=== PATIENT | female | born 1940 | race Caucasian/White ===

== ENCOUNTER → 2017-09-10 | Outpatient (CLI) | payer MEDICARE, BC ==
--- NOTE | 2017-09-10 13:09 | FL ---
EXAMINATION: Cervical and Thoracic Esophagram DATE OF EXAM: 09/10/2017 CLINICAL INDICATION: 76-year-old female with GERD, history of Zaid fundoplication in 2016 with recu rrent symptoms with epigastric pain. Flank, cough, and hoarseness. COMPARISON: 09/28/2015 Total Fluoroscopy Time: 2 minutes 42 seconds Total images: 54 FINDINGS: The swallowing mechanism is normal. There is mild anterior endplate spondylosis mid to lower cervical spine causing mild impression onto the posterior cervical esophagus but without any obstruction. Oth erwise, hypopharyngeal anatomy is maintained. The cervical and thoracic portions have a normal course and caliber. Mild to moderate tertiary perist altic contractions are intermittently demonstrated. The mucosa is normal and no persistent filling defect is encountered. At the GE junction, there is focal narrowing prior to the stomach suggesting transdiaphragmatic wrap herniation. The B line is seen above this narrowing suggesting slippage of a portion of the stomach a ernesto the wrap. Gastroesophageal reflux could not be elicited during this exam. IMPRESSION: 1. Focal narrowing prior to the diaphragm. Findings suspicious for transdiaphragmatic wrap herniation . 2. The B line appears to be located above this narrowing. This may represent slippage of a portion of the stomach above the wrap. 3. Further clinical correlation recommended. 4. [id number] tertiary peristalsis. No obstruction.
== END | disposition home or self-care (01) ==
LOC: RADFLMAIN 09:08
PROVIDERS: ATTEND Surgery
DX: K22.8 Other specified diseases of esophagus (principal); K21.9 Gastro-esophageal reflux disease without esophagitis; R93.3 Abnormal findings on diagnostic imaging of other parts of digestive tract
CPT/HCPCS: 74220

== ENCOUNTER 2017-09-12 08:20 | Day surgery (SDC) | payer MEDICARE, BC ==
[2017-09-07 13:26] VITALS: BMI 24.0
[~2017-09-12 08:20] MED LIST: LACTATED RINGERS 1,000 ML IV SCH; LIDOCAINE 1% 20 ML VIAL (10MG/ML) FOR IV START INTRADERMA PRN
[2017-09-12 09:21] VITALS: TEMP 96.8
[2017-09-12] MEDS ORDERED: PROPOFOL 10 MG/ML 20 ML VIAL IV ONE (09:57)
--- NOTE | 2017-09-12 10:00 | P.GSHP ---
History of Present Illness H&P Date: 09/12/17 Chief Complaint: GERD This is a 76-year-old female presents today for EGD. She's had issues with GERD. She has a previous history of a hiatal hernia repair. Past Medical History Past Medical History: Chest Pain / Angina, GERD/Reflux, Hyperlipidemia, Hypertension Additional Past Medical History / Comment(s): CHRONIC COUGH, hiatal hernia, VARICOSE VEINS. past hx. IRREGULAR HEART BEAT-no current problems,. HX CHEST PAIN - NO NITRO USED SINCE 2008, stress test 2013 wnl per pt. History of Any Multi-Drug Resistant Organisms: None Reported Past Surgical History: Appendectomy, Hysterectomy, Orthopedic Surgery, Tubal Ligation Additional Past Surgical History / Comment(s): Heel spur; carpal tunnel L WRIST , CYSTOCELE, RECTOCELE, EGD, colonoscopy Past Anesthesia/Blood Transfusion Reactions: Previous Problems w/ Anesthesia Additional Past Anesthesia/Blood Transfusion Reaction / Comment(s): HARD TO WAKE UP AFTER HYSTERECTOMY SURGERY Smoking Status: Never smoker - Past Family History Mother Family Medical History: Cancer Additional Family Medical History / Comment(s): HX BREAST CA , diet controlled diabetes Father Additional Family Medical History / Comment(s): of heart attack at 58 Brother(s) Family Medical History: Diabetes Mellitus Additional Family Medical History / Comment(s): insulin Medications and Allergies Home Medications Medication Instructions Recorded Confirmed Type Aspirin 81 mg PO QAM 11/12/13 09/12/17 History Calcium Carbonate/Vitamin D3 1 each PO DAILY 11/12/13 09/12/17 History [Calcium 600-Vit D3 400 Tablet] Fish Oil/Dha/Epa [Fish Oil 1,200 1,200 mg PO DAILY 11/12/13 09/12/17 History mg Fish Oil] Metoprolol Tartrate [Lopressor] 25 mg PO QAM 11/12/13 09/12/17 History Nitroglycerin Sl Tabs [Nitrostat] 0.4 mg SUBLINGUAL DIRECTED PRN 11/12/13 History Simvastatin [Zocor] 20 mg PO HS 11/12/13 09/12/17 History amLODIPine [Norvasc] 5 mg PO QAM 08/19/15 09/12/17 History Acetaminophen-Codeine 300-30mg 1 tab PO Q6H PRN #28 tablet 09/29/15 09/12/17 Rx [Tylenol #3] Allergies Allergy/AdvReac Type Severity Reaction Status Date / Time levofloxacin [From Levaquin] Allergy Itching/JOE Verified 09/12/17 09:15 H Surgical - Exam Vital Signs Temp Pulse Resp BP Pulse Ox 96.8 F L 68 18 141/84 94 L 09/12/17 09:19 09/12/17 09:19 09/12/17 09:19 09/12/17 09:19 09/12/17 09:19 - General well developed, no distress - Eyes PERRL - ENT normal pinna - Neck no masses - Respiratory normal expansion - Cardiovascular Rhythm: regular - Abdomen Abdomen: soft, non tender Assessment and Plan Assessment: GERD. Patient's recent esophagram shows possible recurrence of hiatal hernia and fundoplication at the diaphragm level. Patient will undergo EGD to evaluate for possible recurrent hiatal hernia.
--- NOTE | 2017-09-12 10:09 | P.OP ---
Date of Procedure: 09/12/17 Preoperative Diagnosis: GERD Postoperative Diagnosis: Antral gastritis Possible slipped fundoplication Procedure(s) Performed: EGD Anesthesia: MAC Surgeon: Fernando Sosa Pathology: other (Antrum) Condition: stable Disposition: PACU Description of Procedure: The patient's placed on the endoscopy table in the lateral position. She received IV sedation. The gastroscope placed oropharynx and passed in the esophagus into the stomach. Scope was then placed through the pylorus. The first second portion of duodenumAppeared Normal. Scope was then brought back the antrum this was mildly inflamed. A biopsies was performed. The scope was then retroflexed and the remainder of the stomach appeared normal. The patient a fundal plication wrap. There appeared to be some stomach above the fundoplication wrap the GE junction was at 40 cm. The distal esophagus appeared normal. The proximal esophagus appeared normal. Scope was withdrawn for patient.
[2017-09-12 10:26] VITALS: RESP 16
[2017-09-12 10:42] VITALS: BP 166/85; PULSE 80
== END 2017-09-12 11:00 | disposition home or self-care (01) ==
LOC: ORWHC2ENDO 08:20
PROVIDERS: ATTEND Surgery
DX: K29.50 Unspecified chronic gastritis without bleeding (principal); K21.9 Gastro-esophageal reflux disease without esophagitis; I10 Essential (primary) hypertension; E78.5 Hyperlipidemia, unspecified; Z79.82 Long term (current) use of aspirin; Z87.19 Personal history of other diseases of the digestive system; Z83.3 Family history of diabetes mellitus; Z88.3 Allergy status to other anti-infective agents
CPT/HCPCS: 88305; 43239; J2704

== ENCOUNTER → 2017-11-16 | Outpatient (CLI) | payer MEDICARE, BC ==
--- NOTE | 2017-11-16 12:25 | FL ---
EXAMINATION TYPE: FL barium swallow DATE OF EXAM: 11/16/2017 CLINICAL HISTORY: History of Zaid fundoplication in 2016. Patient complains of hoarseness and reflu x. TECHNIQUE: A double contrast esophagram is performed utilizing air and barium. A total of 1 minute and 37 seconds of fluoroscopic time was utilized during procedure. 41 fluoroscopic images were saved. COMPARISON: 09/10/2017 FINDINGS: Postsurgical changes of the cervical spine are again noted with anterior osteophytes minimally impres sing upon the lower cervical spine as seen on the prior. The esophagus shows abnormal motility with mild tertiary contractions seen intermittently throughout the examination. There is normal emptying into the stomach. The previously seen narrowing at the GE j unction relates to the surgical wrap site of the Zaid fundoplication. This is located inferior to t he diaphragm. The previously seen abnormality of the B line located above the area of narrowing no lo nger persists but was convincing on the prior examination and therefore in correlation with the prior exam there may be an intermittent slippage/herniation. No significant gastroesophageal reflux was s een during real time performance of this study. IMPRESSION: 1. The findings seen on the prior exam of 09/10/2017 do not persist on the current study and therefore there is thought to be intermittent slippage/herniation. Gastroesophageal junction and postoperativ e changes are currently infradiaphragmatic. 2. Intermittent tertiary contractions throughout the examination suggestive of presbyesophagus.
== END | disposition home or self-care (01) ==
LOC: RADFLWHC 10:41
PROVIDERS: ATTEND Surgery
DX: R93.3 Abnormal findings on diagnostic imaging of other parts of digestive tract (principal)
CPT/HCPCS: 74220

== ENCOUNTER 2017-11-22 06:45 | Day surgery (SDC) | payer MEDICARE, BC ==
[2017-11-21 08:22] VITALS: BMI 24.7
[~2017-11-22 06:45] MED LIST changes: -LIDOCAINE 1% 20 ML VIAL (10MG/ML) FOR IV START INTRADERMA PRN
[2017-11-22 07:03] VITALS: TEMP 98.2
[2017-11-22] MEDS ORDERED: LIDOCAINE 1% INJ 10MG/ML (20 ML MDV) ONE (07:38)
[2017-11-22] MEDS ORDERED: PROPOFOL 10 MG/ML 20 ML VIAL IV ONE (07:38)
--- NOTE | 2017-11-22 07:52 | P.GSHP ---
History of Present Illness H&P Date: 11/22/17 Chief Complaint: GERD This is a 77-year-old female who has complaints of some mild GERD and dysphagia. Patient states that she feels like she has to clear her throat repetitively during the day. She presents today for EGD. Past Medical History Past Medical History: Chest Pain / Angina, GERD/Reflux, Hyperlipidemia, Hypertension Additional Past Medical History / Comment(s): CHRONIC COUGH, hiatal hernia, VARICOSE VEINS. past hx. IRREGULAR HEART BEAT-no current problems,. HX CHEST PAIN - NO NITRO USED SINCE 2008, stress test 2013 wnl per pt. History of Any Multi-Drug Resistant Organisms: None Reported Past Surgical History: Appendectomy, Hysterectomy, Orthopedic Surgery, Tubal Ligation Additional Past Surgical History / Comment(s): Heel spur; carpal tunnel L WRIST , CYSTOCELE, RECTOCELE, EGD, colonoscopy Past Anesthesia/Blood Transfusion Reactions: Previous Problems w/ Anesthesia Additional Past Anesthesia/Blood Transfusion Reaction / Comment(s): HARD TO WAKE UP AFTER HYSTERECTOMY SURGERY Smoking Status: Never smoker - Past Family History Mother Family Medical History: Cancer Additional Family Medical History / Comment(s): HX BREAST CA , diet controlled diabetes Father Additional Family Medical History / Comment(s): of heart attack at 58 Brother(s) Family Medical History: Diabetes Mellitus Additional Family Medical History / Comment(s): insulin Sister(s) Family Medical History: Cancer Additional Family Medical History / Comment(s): reproductive Medications and Allergies Home Medications Medication Instructions Recorded Confirmed Type Aspirin 81 mg PO QAM 11/12/13 11/22/17 History Calcium Carbonate/Vitamin D3 1 each PO DAILY 11/12/13 11/22/17 History [Calcium 600-Vit D3 400 Tablet] Fish Oil/Dha/Epa [Fish Oil 1,200 1,200 mg PO DAILY 11/12/13 11/22/17 History mg Fish Oil] Metoprolol Tartrate [Lopressor] 25 mg PO QAM 11/12/13 11/22/17 History Nitroglycerin Sl Tabs [Nitrostat] 0.4 mg SUBLINGUAL DIRECTED PRN 11/12/1306/10 History Simvastatin [Zocor] 20 mg PO HS 11/12/13 11/22/17 History amLODIPine [Norvasc] 5 mg PO QAM 08/19/15 11/22/17 History Acetaminophen-Codeine 300-30mg 1 tab PO Q6H PRN #28 tablet 09/29/15 11/22/17 Rx [Tylenol #3] Allergies Allergy/AdvReac Type Severity Reaction Status Date / Time levofloxacin [From Levaquin] Allergy Itching/JOE Verified 11/21/17 08:16 H Surgical - Exam Vital Signs Temp Pulse Resp BP Pulse Ox 98.2 F 80 14 166/87 97 11/22/17 07:01 11/22/17 07:01 11/22/17 07:01 11/22/17 07:01 11/22/17 07:01 - General well developed, no distress - Eyes PERRL - ENT normal pinna - Neck no masses - Respiratory normal expansion - Cardiovascular Rhythm: regular - Abdomen Abdomen: non tender Assessment and Plan Assessment: History of GERD. We'll perform EGD.
--- NOTE | 2017-11-22 08:01 | P.OP ---
Date of Procedure: 11/22/17 Preoperative Diagnosis: GERD Postoperative Diagnosis: Recurrent hiatal hernia Possible slipped fundoplication Procedure(s) Performed: EGD Anesthesia: MAC Surgeon: Fernando Sosa Pathology: other (Esophagus) Condition: stable Disposition: PACU Description of Procedure: The patient's placed on the operating table in the lateral position. She received IV sedation. The gastroscope was placed oropharynx and passed into the esophagus and into the stomach. The scope was then placed through the pylorus. The first and second portion of the duodenum appeared normal. Scope was then brought back the antrum and this appeared normal. The scope was retroflexed and the remainder of the stomach appeared normal. The patient had a previous fundal plication. The scope was then brought back and it appeared that the fundoplication was just below the level of GE junction. The proximal stomach appeared to be suggestive of a recurrent hiatal hernia. The distal esophagus appeared mildly inflamed a biopsies performed. The proximal esophagus appeared normal. The scope was then withdrawn for patient.
[2017-11-22 08:38] VITALS: BP 154/92; PULSE 83; RESP 18
== END 2017-11-22 08:50 | disposition home or self-care (01) ==
LOC: ORWHC2ENDO 06:45
PROVIDERS: ATTEND Surgery
DX: K21.0 Gastro-esophageal reflux disease with esophagitis (principal); K44.9 Diaphragmatic hernia without obstruction or gangrene; E78.5 Hyperlipidemia, unspecified; I10 Essential (primary) hypertension; R05 Cough; Z79.82 Long term (current) use of aspirin; Z79.899 Other long term (current) drug therapy; Z88.1 Allergy status to other antibiotic agents; Z98.51 Tubal ligation status; Z90.710 Acquired absence of both cervix and uterus
CPT/HCPCS: 88305; 43239; J2001; J2704

== ENCOUNTER → 2017-12-03 | Outpatient (CLI) | payer MEDICARE, BC | END | disposition home or self-care (01) | LOC: LABPAT 10:59 | PROVIDERS: ATTEND Surgery | DX: Z01.818 Encounter for other preprocedural examination (principal) | CPT/HCPCS: 93005 ==

== ENCOUNTER 2017-12-17 09:11 | Day surgery (SDC) | payer MEDICARE, BC ==
[2017-12-05 15:42] VITALS: BMI 23.8
[~2017-12-17 09:11] MED LIST changes: +DEXAMETHASONE SOD PHOSPHATE 10 MG/ML 1 ML VIAL IV ONE; +HEPARIN SODIUM,PORCINE 5,000 UNIT/ML 1 ML VIAL SQ ONE; +MIDAZOLAM 2 MG/2 ML VIAL IV PRN; +ONDANSETRON 4 MG/2 ML VIAL IVP ONE; +ceFAZolin IN SWFI 2 GM/20 ML SYRINGE IVP ONE
[2017-12-17] MEDS ORDERED: LIDOCAINE 1% 20 ML VIAL (10MG/ML) FOR IV START INTRADERMA ONE (10:14)
--- NOTE | 2017-12-17 11:22 | P.GSHP ---
History of Present Illness H&P Date: 12/17/17 Chief Complaint: GERD, dysphagia This a 77-year-old female who is completely GERD and dysphagia. She has recent esophagram shows a possible small recurrent hiatal hernia hospital slippage of her fundoplication wrap. Patient rents today for laparoscopic repair of recurrent Past Medical History Past Medical History: Chest Pain / Angina, GERD/Reflux, Hypertension Additional Past Medical History / Comment(s): CHRONIC COUGH, hiatal hernia, VARICOSE VEINS , IRREGULAR HEART BEAT, HX CHEST PAIN - NO NITRO USED SINCE 2008 , stress test 2013 wnl per pt. varicose veins, History of Any Multi-Drug Resistant Organisms: None Reported Past Surgical History: Appendectomy, Bladder Surgery, Hysterectomy, Orthopedic Surgery, Tubal Ligation Additional Past Surgical History / Comment(s): Heel spur surgery left foot, carpal tunnel L WRIST, CYSTOCELE and RECTOCELE, EGD, colonoscopy Past Anesthesia/Blood Transfusion Reactions: Previous Problems w/ Anesthesia Additional Past Anesthesia/Blood Transfusion Reaction / Comment(s): HARD TO WAKE UP AFTER HYSTERECTOMY SURGERY Smoking Status: Never smoker - Past Family History Mother Family Medical History: Cancer Additional Family Medical History / Comment(s): HX BREAST CA Father Additional Family Medical History / Comment(s): of heart attack at 58 Brother(s) Family Medical History: Diabetes Mellitus Additional Family Medical History / Comment(s): insulin Sister(s) Family Medical History: Cancer Additional Family Medical History / Comment(s): . Medications and Allergies Home Medications Medication Instructions Recorded Confirmed Type Aspirin 81 mg PO QAM 11/12/13 12/17/17 History Calcium Carbonate/Vitamin D3 1 each PO DAILY 11/12/13 12/17/17 History [Calcium 600-Vit D3 400 Tablet] Fish Oil/Dha/Epa [Fish Oil 1,200 1,200 mg PO DAILY 11/12/13 12/17/17 History mg Fish Oil] Metoprolol Tartrate [Lopressor] 25 mg PO QAM 11/12/13 12/17/17 History Nitroglycerin Sl Tabs [Nitrostat] 0.4 mg SUBLINGUAL DIRECTED PRN 11/12/13 History Simvastatin [Zocor] 20 mg PO HS 11/12/13 12/17/17 History amLODIPine [Norvasc] 5 mg PO QAM 08/19/15 12/17/17 History Allergies Allergy/AdvReac Type Severity Reaction Status Date / Time levofloxacin [From Levaquin] Allergy Itching/JOE Verified 12/17/17 09:49 H Surgical - Exam Vital Signs Temp Pulse Resp BP Pulse Ox 97.6 F 70 16 181/83 97 12/17/17 10:16 12/17/17 10:16 12/17/17 10:16 12/17/17 10:16 12/17/17 10:16 - General well developed, no distress - Eyes PERRL - ENT normal pinna - Neck no masses - Respiratory normal expansion - Cardiovascular Rhythm: regular - Abdomen Abdomen: soft, non tender Assessment and Plan Assessment: Recurrent hiatal hernia. We'll perform laparoscopic repair.
[2017-12-17] MEDS ORDERED: ePHEDrine SULFATE/0.9% NACL/PF 50 MG/5 ML SYRINGE IV ONE (11:42)
[2017-12-17] MEDS ORDERED: ONDANSETRON 4 MG/2 ML VIAL ONE (11:42)
[2017-12-17] MEDS ORDERED: fentaNYL (PF) 50 MCG/ML 2 ML AMP ONE (11:42)
[2017-12-17] MEDS ORDERED: SUCCINYLCHOLINE CHLORIDE 100 MG/5 ML SYR IV ONE (11:42)
[2017-12-17] MEDS ORDERED: NEOSTIGMINE 1 MG/ML 10 ML VIAL ONE (11:42)
[2017-12-17] MEDS ORDERED: LABETALOL 5 MG/ML VIAL MDV ONE (11:42)
[2017-12-17] MEDS ORDERED: MIDAZOLAM 2 MG/2 ML VIAL ONE (11:42)
[2017-12-17] MEDS ORDERED: PROPOFOL 10 MG/ML 20 ML VIAL IV ONE (11:42)
[2017-12-17] MEDS ORDERED: ROCURONIUM BROMIDE 10 MG/ML 10 ML VIAL IV ONE (11:42)
[2017-12-17] MEDS ORDERED: GLYCOPYRROLATE 0.2 MG/ML 2 ML VIAL ONE (11:42)
[2017-12-17] MEDS ORDERED: LIDOCAINE 1% INJ 10MG/ML (20 ML MDV) ONE (11:42)
[2017-12-17] MEDS ORDERED: BUPIVACAIN-EPI 0.5%-1:200,000 30 ML VIAL SQ ONE (12:26)
[2017-12-17] MEDS ORDERED: HYDROmorphone 1 MG/ML 1 ML SYRINGE IVP PRN (12:34)
[2017-12-17] MEDS ORDERED: ONDANSETRON 4 MG/2 ML VIAL IVP PRN (12:34)
[2017-12-17] MEDS: fentaNYL (PF) 50 MCG/ML 2 ML AMP IV PRN ×2 (13:13→13:17)
[2017-12-17] MEDS ORDERED: METOCLOPRAMIDE 5 MG/ML 2 ML VIAL IVP ONE (13:23)
[2017-12-17] MEDS: HYDROmorphone 1 MG/ML 1 ML SYRINGE IVP ONE ×2 (13:23→13:30)
[2017-12-17] MEDS ORDERED: NITROGLYCERIN SL TABS 0.4 MG TAB SUBLINGUAL PRN (15:25)
--- NOTE | 2017-12-17 15:42 | P.CONS ---
History of Present Illness - Reason for Consult Consult date: 12/17/17 Medical management Requesting physician: Fernando Sosa - Chief Complaint GERD and dysphasia - History of Present Illness This is a 77-year-old female patient of Dr. Irvin. Patient presented for an elective laparoscopic revision of vince Fundoplication with Dr. Sosa. Patient recently underwent esophagram that shows a possible small recurrent hiatal hernia hospital slippage of her fundoplication wrap She has a known past medical history of GERD, recurrent hiatal hernia, dysphasia, chest pain, hypertension appendectomy and hysterectomy. Patient currently resting comfortably in bed post procedure. Patient denies pain. Patient denies chest pain or shortness breath. Denies nausea vomiting or diarrhea. Patient denies urinary burning or frequency. Review of Systems Please refer to HPI otherwise unremarkable Past Medical History Past Medical History: Chest Pain / Angina, GERD/Reflux, Hypertension Additional Past Medical History / Comment(s): CHRONIC COUGH, hiatal hernia, VARICOSE VEINS , IRREGULAR HEART BEAT, HX CHEST PAIN - NO NITRO USED SINCE 2008 , stress test 2013 wnl per pt. varicose veins, History of Any Multi-Drug Resistant Organisms: None Reported Past Surgical History: Appendectomy, Bladder Surgery, Hysterectomy, Orthopedic Surgery, Tubal Ligation Additional Past Surgical History / Comment(s): Heel spur surgery left foot, carpal tunnel L WRIST, CYSTOCELE and RECTOCELE, EGD, colonoscopy Past Anesthesia/Blood Transfusion Reactions: Previous Problems w/ Anesthesia Additional Past Anesthesia/Blood Transfusion Reaction / Comm: HARD TO WAKE UP AFTER HYSTERECTOMY SURGERY Past Psychological History: No Psychological Hx Reported Smoking Status: Never smoker Past Alcohol Use History: None Reported Past Drug Use History: None Reported - Past Family History Mother Family Medical History: Cancer Additional Family Medical History / Comment(s): HX BREAST CA Father Additional Family Medical History / Comment(s): of heart attack at 58 Brother(s) Family Medical History: Diabetes Mellitus Additional Family Medical History / Comment(s): insulin Sister(s) Family Medical History: Cancer Additional Family Medical History / Comment(s): . Medications and Allergies Home Medications Medication Instructions Recorded Confirmed Type Aspirin 81 mg PO QAM 11/12/13 12/17/17 History Calcium Carbonate/Vitamin D3 1 each PO DAILY 11/12/13 12/17/17 History [Calcium 600-Vit D3 400 Tablet] Fish Oil/Dha/Epa [Fish Oil 1,200 1,200 mg PO DAILY 11/12/13 12/17/17 History mg Fish Oil] Metoprolol Tartrate [Lopressor] 25 mg PO QAM 11/12/13 12/17/17 History Nitroglycerin Sl Tabs [Nitrostat] 0.4 mg SUBLINGUAL DIRECTED PRN 11/12/13 History Simvastatin [Zocor] 20 mg PO HS 11/12/13 12/17/17 History amLODIPine [Norvasc] 5 mg PO QAM 08/19/15 12/17/17 History Allergies Allergy/AdvReac Type Severity Reaction Status Date / Time levofloxacin [From Levaquin] Allergy Itching/JOE Verified 12/17/17 14:08 H Physical Exam Vitals: Vital Signs Temp Pulse Pulse Pulse Resp BP BP 12/17/17 14:50 60 18 110/57 12/17/17 14:35 64 18 140/58 12/17/17 14:20 97.3 F L 66 18 122/67 12/17/17 14:00 58 L 16 124/63 12/17/17 13:43 58 L 16 123/61 12/17/17 13:28 59 L 16 136/65 12/17/17 13:13 82 18 155/76 12/17/17 12:58 97.1 F L 82 16 162/76 12/17/17 10:16 97.6 F 70 16 181/83 Pulse Ox 12/17/17 14:50 98 12/17/17 14:35 96 12/17/17 14:20 97 12/17/17 14:00 99 12/17/17 13:43 93 L 12/17/17 13:28 100 12/17/17 13:13 100 12/17/17 12:58 100 12/17/17 10:16 97 Intake and Output 12/17/17 12/17/17 12/17/17 06:59 14:59 22:59 Intake Total 1200 Output Total 505 Balance 695 Intake: IV 1200 Output: Urine 500 Estimated Blood Loss 5 Other: Voiding Method Toilet Head normocephalic Neck supple Lungs clear to auscultation bilaterally no wheezing or crackles Heart regular rate and rhythm S1-S2, no rub or gallop Abdomen is soft nontender nondistended positive bowel sounds no hepatosplenomegaly Extremities no edema Neuro alert and orientated to 3 Assessment and Plan Assessment: 1. Status post laparoscopic revision of Vince fundoplication with Dr. Sosa. Patient currently resting comfortably in bed. Patient started on Vince clear liquid diet per surgical team. 2. History of GERD. 3. History of hiatal hernia 4. Essential hypertension. Continue Norvasc and Lopressor 5. History of chest pain 6. History of hyperlipidemia. Continue Lipitor DVT prophylaxis lovenox. GI prophylaxis Pepcid Thank you for this consultation we will continue to follow patient throughout stay. Time with Patient: Greater than 30 (Greater than 60% of the total time spent in counseling and coordination of care. I performed an examination of the patient and discussed their management with the Nurse Practitioner. I have reviewed the Nurse Practitioner's notes and agree with the documented findings and plan of care)
--- NOTE | 2017-12-17 15:42 | P.OP ---
Date of Procedure: 12/17/17 Preoperative Diagnosis: GERD Slipped fundoplication Postoperative Diagnosis: GERD Slipped fundoplication Procedure(s) Performed: Laparoscopic Zaid fundoplication with 180 wrap Anesthesia: BERNA Surgeon: Fernando Sosa Estimated Blood Loss (ml): 5 Pathology: none sent Condition: stable Disposition: PACU Description of Procedure: Patient's placed on the operative table in the supine position. She received IV sedation. She then received general anesthesia. Her abdomen was prepped and draped usual sterile fashion. The patient had been positioned in the dorsal lithotomy position. The incision sites were anesthetized 1% local Xylocaine. Then using 11 blade a skin incision was made in the left periumbilical area. Using an optical 5 mm trocar under direct visualization the peritoneal cavity is entered. And then the abdomen was insufflated. After adequate insufflation a fibrillar trocar is placed in the right epigastric, right lateral, left epigastric and left lateral position. The left lateral lobe liver was retracted. And the hiatus was visualized. There appeared to be a slipped fundoplication. Using the Metzenbaum scissors the fundoplication wrap was taken down. Care was taken to identify and preserve the gastric wall. The evens was dissected. There was a small hiatal hernia. This was repaired with 2-0 Ethibond suture. The stomach was then insufflated with methylene blue normal saline. There is no evidence of extravasation. The patient had 180 fundoplication wrap. The abdomen was irrigated there is no bleeding seen. The trochars withdrawn. Skin closed interrupted 3-0 Monocryl suture. Dermabond was applied.
--- NOTE | 2017-12-17 16:58 | FL ---
SINGLE CONTRAST ESOPHAGRAM: CLINICAL HISTORY: 77 year-old female rule out leak/obstruction. Patient status post ReVision Zaid f undoplication, original surgery in 2016 with recurrent hoarseness and excessive phlegm. TECHNIQUE: Single contrast exam performed with 50 ml Isovue-370 contrast. Total fluoroscopy time: 36 seconds. Total images: 19. FINDINGS: The patient swallowed oral contrast without difficulty or delay. Esophageal peristalsis and motility are within normal limits. Post surgical changes of Zaid fundoplication are demonstrated. There is good flow of contrast into the stomach. No evidence of contrast extravasation to suggest leak. Trace postsurgical free air below the right hemidiaphragm. IMPRESSION: No evidence of leak or significant obstruction status post Zaid fundoplication. Trace postsurgical free air on the right.
[2017-12-17] MEDS: D5-0.45% NACL WITH KCL 20MEQ/L 1,000 ML IV SCH ×2 (17:15→23:22)
[2017-12-17] MEDS: METOCLOPRAMIDE 5 MG/ML 2 ML VIAL IVP SCH (18:13)
[2017-12-17] MEDS: FAMOTIDINE 20 MG/2 ML VIAL IV SCH (20:49)
[2017-12-17] MEDS ORDERED: ATORVASTATIN 10 MG TAB PO SCH (21:00)
[2017-12-18] MEDS: D5-0.45% NACL WITH KCL 20MEQ/L 1,000 ML IV SCH (05:37)
[2017-12-18] MEDS: METOCLOPRAMIDE 5 MG/ML 2 ML VIAL IVP SCH ×3 (05:37→12:29)
[2017-12-18 06:52] LABS: Basophils % (A) 0 %; Eosinophils % (A) 0 %; HCT 38.4 % (34.0-46.0); HGB 13.1 gm/dL (11.4-16.0); Lymphocytes # (A) 1.6 k/uL (1.0-4.8); Lymphocytes % (A) 13 %; MCH 31.1 pg (25.0-35.0); MCV 91.4 fL (80.0-100.0); Mean Platelet Volume 6.9; Monocytes # (A) 0.9 k/uL (0-1.0); Monocytes % (A) 7 %; Neutrophils # (A) 9.9 k/uL (1.3-7.7); Neutrophils % (A) 79 %; Platelet Count 201 k/uL (150-450); RDW 12.6 % (11.5-15.5); WBC 12.5 k/uL (3.8-10.6)
[2017-12-18 07:14] LABS: ALT 60 U/L (9-52); AST 58 U/L (14-36); Albumin 3.5 g/dL (3.5-5.0); Alkaline Phosphatase 56 U/L (38-126); Anion Gap 7 mmol/L; Blood Urea Nitrogen 7 mg/dL (7-17); Calcium 9.1 mg/dL (8.4-10.2); Carbon Dioxide 22 mmol/L (22-30); Chloride 111 mmol/L (98-107); Glucose 108 mg/dL (74-99); Potassium 4.2 mmol/L (3.5-5.1); Sodium 140 mmol/L (137-145); Total Bilirubin 0.5 mg/dL (0.2-1.3)
[2017-12-18] MEDS ORDERED: amLODIPine 5 MG TAB PO SCH (09:00)
[2017-12-18] MEDS ORDERED: METOPROLOL TARTRATE 25 MG TAB PO SCH (09:00)
[2017-12-18] MEDS ORDERED: NON-FORMULARY DRUG (Fish Oil/Dha/Epa [Fish Oil 1,200 Mg Fish Oil] 1,200 MG) PO SCH (09:00)
[2017-12-18] MEDS ORDERED: CALCIUM CARB-VIT D 500MG-200UN 1 EACH TAB PO SCH (09:00)
[2017-12-18] MEDS ORDERED: ENOXAPARIN 40 MG/0.4 ML SYRINGE SQ SCH (09:00)
[2017-12-18] MEDS ORDERED: ASPIRIN 81 MG PO SCH (09:00)
[2017-12-18] MEDS: FAMOTIDINE 20 MG/2 ML VIAL IV SCH (09:50)
--- NOTE | 2017-12-18 09:58 | P.PN ---
Subjective Progress Note Date: 12/18/17 This is a 77-year-old female patient of Dr. Irvin. Patient presented for an elective laparoscopic revision of vince Fundoplication with Dr. Sosa. Patient recently underwent esophagram that shows a possible small recurrent hiatal hernia hospital slippage of her fundoplication wrap She has a known past medical history of GERD, recurrent hiatal hernia, dysphasia, chest pain, hypertension appendectomy and hysterectomy. Patient currently resting comfortably in bed post procedure. Patient denies pain. Patient denies chest pain or shortness breath. Denies nausea vomiting or diarrhea. Patient denies urinary burning or frequency. On 12/18/2017 patient O A3. patient is currently resting comfortably in bed. Patient denies any nausea vomiting or diarrhea. Denies any chest pain or shortness of breath. Patient currently on Vince clear liquid diet. Objective - Vital Signs Vital signs: Vital Signs Temp 97.5 F L 12/18/17 08:25 Pulse 73 12/18/17 08:25 Resp 18 12/18/17 08:25 BP 131/60 12/18/17 08:25 Pulse Ox 96 12/18/17 08:25 Intake & Output 12/17/17 12/18/17 12/18/17 18:59 06:59 18:59 Intake Total 1200 240 Output Total 505 600 Balance 695 -360 Weight 57.153 kg Intake: IV 1200 Oral 240 Output: Urine 500 600 Estimated Blood Loss 5 Other: Voiding Method Toilet # Voids 1 1 - Exam Head normocephalic Neck supple Lungs clear to auscultation bilaterally no wheezing or crackles Heart regular rate and rhythm S1-S2, no rub or gallop Abdomen is soft nontender nondistended positive bowel sounds no hepatosplenomegaly Extremities no edema Neuro alert and orientated to 3 - Labs CBC & Chem 7: 12/18/17 06:19 12/18/17 06:19 Labs: Abnormal Lab Results - Last 24 Hours (Table) 12/18/17 12/18/17 Range/Units 06:19 06:19 WBC 12.5 H (3.8-10.6) k/uL Neutrophils # 9.9 H (1.3-7.7) k/uL Chloride 111 H (98-107) mmol/L Glucose 108 H (74-99) mg/dL AST 58 H (14-36) U/L ALT 60 H (9-52) U/L Total Protein 6.0 L (6.3-8.2) g/dL Assessment and Plan Assessment: 1. Status post laparoscopic revision of Vince fundoplication with Dr. Sosa. Patient currently resting comfortably in bed. Patient started on Vince clear liquid diet per surgical team. 2. History of GERD. 3. History of hiatal hernia 4. Essential hypertension. Continue Norvasc and Lopressor 5. History of chest pain 6. History of hyperlipidemia. Continue Lipitor 7. Leukocytosis. White blood cell 12.5. She remains afebrile urinary analysis has been ordered. DVT prophylaxis lovenox. GI prophylaxis Pepcid Thank you for this consultation we will continue to follow patient throughout stay. I performed an examination of the patient and discussed their management with the Nurse Practitioner. I have reviewed the Nurse Practitioner's notes and agree with the documented findings and plan of care
[2017-12-18 11:32] LABS: Appearance,Urine Clear (Clear); Bilirubin,Urine Negative (Negative); Blood,Urine Negative (Negative); Color,Urine Colorless; Glucose,Urine (UA) Negative (Negative); Ketones,Urine Negative (Negative); Leukocyte Esterase,Urine Negative (Negative); Nitrite,Urine Negative (Negative); PH, Urine 6.5 (5.0-8.0); Protein,Urine Negative (Negative); Specific Gravity,Urine 1.002 (1.001-1.035); Urobilinogen,Urine <2.0 mg/dL (<2.0)
[2017-12-18 13:59] VITALS: BP 145/54; PULSE 72; RESP 19; TEMP 97.9
--- NOTE | 2017-12-18 14:05 | P.DS ---
Providers Expected date of discharge: 12/18/17 Attending physician: Fernando Sosa Consults: 12/17/17 12:34 Consult Physician Routine Consulting Provider: Ashok Witt Consult Reason/Comments: Medical management Do you want consulting provider notified?: Yes Primary care physician: Kamilah Irvin [facility] Course: 77-year-old female presented on elective admission to undergo Laparoscopic Zaid fundoplication with 180 wrap for a slipped No postop events. Impression discharge diagnosis Laparoscopic Zaid fundoplication with 180 wrap Essential hypertension History of hiatal hernia Hyperlipidemia The above impression and plan of care have been discussed and directed by signing physician. May Lucas nurse practitioner acting as scribe for signing physician. Plan - Discharge Summary New Discharge Prescriptions: New Acetaminophen Tab [Tylenol Tab] 650 mg PO Q6H #30 tablet Continue Aspirin 81 mg PO QAM Fish Oil/Dha/Epa [Fish Oil 1,200 mg Fish Oil] 1,200 mg PO DAILY Simvastatin [Zocor] 20 mg PO HS Nitroglycerin Sl Tabs [Nitrostat] 0.4 mg SUBLINGUAL DIRECTED PRN PRN Reason: Chest Pain Metoprolol Tartrate [Lopressor] 25 mg PO QAM Calcium Carbonate/Vitamin D3 [Calcium 600-Vit D3 400 Tablet] 1 each PO DAILY amLODIPine [Norvasc] 5 mg PO QAM Discharge Medication List Aspirin 81 mg PO QAM 11/12/13 [History] Calcium Carbonate/Vitamin D3 [Calcium 600-Vit D3 400 Tablet] 1 each PO DAILY [History] Fish Oil/Dha/Epa [Fish Oil 1,200 mg Fish Oil] 1,200 mg PO DAILY 11/12/13 [ History] Metoprolol Tartrate [Lopressor] 25 mg PO QAM 11/12/13 [History] Nitroglycerin Sl Tabs [Nitrostat] 0.4 mg SUBLINGUAL DIRECTED PRN 11/12/13 [ History] Simvastatin [Zocor] 20 mg PO HS 11/12/13 [History] amLODIPine [Norvasc] 5 mg PO QAM 08/19/15 [History] Acetaminophen Tab [Tylenol Tab] 650 mg PO Q6H #30 tablet 12/18/17 [Rx] Follow up Appointment(s)/Referral(s): Fernando Sosa MD [STAFF PHYSICIAN] - 10 Days Activity/Diet/Wound Care/Special Instructions: No tub bath for six weeks. Shower daily. No lifting over 10 pounds for the next 6 weeks. Continue on clear liquid diet zaid May use ice packs to surgical site. No driving while taking narcotic for pain. Discharge Disposition: HOME SELF-CARE
== END 2017-12-18 14:46 | disposition home or self-care (01) ==
LOC: OR 09:11 → 6PED 12:41 → OR 12-18 14:46
PROVIDERS: ATTEND Surgery
DX: K91.89 Other postprocedural complications and disorders of digestive system (principal); I10 Essential (primary) hypertension; K21.9 Gastro-esophageal reflux disease without esophagitis; K44.9 Diaphragmatic hernia without obstruction or gangrene; R13.10 Dysphagia, unspecified; Z79.82 Long term (current) use of aspirin; Z79.899 Other long term (current) drug therapy
CPT/HCPCS: 80053; 85025; 81003; 74210; 43281; J2250; J1644; J1100; J2710; J2765 ×2; J2405; J2001; J1650; J3010; J1170; J0330; J2704; J0690; Q9967

== ENCOUNTER → 2017-12-20 | Outpatient (CLI) | payer MEDICARE, BC ==
[2017-12-20 11:20] LABS: ALT 53 U/L (9-52); AST 49 U/L (14-36); Albumin 4.4 g/dL (3.5-5.0); Alkaline Phosphatase 73 U/L (38-126); Anion Gap 10 mmol/L; Blood Urea Nitrogen 15 mg/dL (7-17); Carbon Dioxide 25 mmol/L (22-30); Chloride 104 mmol/L (98-107); Glucose 103 mg/dL (74-99); Potassium 4.2 mmol/L (3.5-5.1); Sodium 139 mmol/L (137-145); Total Bilirubin 0.8 mg/dL (0.2-1.3); Total Protein 7.4 g/dL (6.3-8.2)
== END | disposition home or self-care (01) ==
LOC: LABWHC1 10:32
PROVIDERS: ATTEND Nurse Practitioner
DX: K91.89 Other postprocedural complications and disorders of digestive system (principal); K21.9 Gastro-esophageal reflux disease without esophagitis
CPT/HCPCS: 36415; 80053

== ENCOUNTER 2022-09-04 12:15 | Day surgery (SDC) | payer MEDICARE, BC ==
[2022-08-30 12:56] VITALS: BMI 24.1
[2022-09-04 12:48] VITALS: TEMP 97.5
[2022-09-04] MEDS ORDERED: LACTATED RINGERS 1,000 ML IV ONE (12:54)
[2022-09-04] MEDS ORDERED: PROPOFOL 10 MG/ML 20 ML VIAL IV ONE (14:14)
--- NOTE | 2022-09-04 14:16 | P.GSHP ---
History of Present Illness H&P Date: 09/04/22 Chief Complaint: screening colonoscopy this a 81-year-old female presents today for screening colonoscopy. Patient denies any significant GI complaints. Past Medical History Past Medical History: Chest Pain / Angina, GERD/Reflux, Hyperlipidemia, Hypertension Additional Past Medical History / Comment(s): CHRONIC COUGH, hiatal hernia, VARICOSE VEINS. past hx. IRREGULAR HEART BEAT-no current problems,. stress test 2013 wnl per pt. History of Any Multi-Drug Resistant Organisms: None Reported Past Surgical History: Appendectomy, Hysterectomy, Orthopedic Surgery, Tubal Ligation Additional Past Surgical History / Comment(s): Heel spur; carpal tunnel L WRIST, CYSTOCELE, RECTOCELE, EGD, colonoscopy, HIATAL HERNIA REPAIR X2 Past Anesthesia/Blood Transfusion Reactions: Previous Problems w/ Anesthesia Additional Past Anesthesia/Blood Transfusion Reaction / Comment(s): HARD TO WAKE UP AFTER HYSTERECTOMY Past Psychological History: No Psychological Hx Reported Smoking Status: Never smoker Past Alcohol Use History: None Reported Past Drug Use History: None Reported - Past Family History Mother Family Medical History: Cancer Additional Family Medical History / Comment(s): HX BREAST CA Father Additional Family Medical History / Comment(s): of heart attack at 58 Brother(s) Family Medical History: Diabetes Mellitus Additional Family Medical History / Comment(s): insulin Sister(s) Family Medical History: Cancer Additional Family Medical History / Comment(s): . Medications and Allergies Home Medications Medication Instructions Recorded Confirmed Type Aspirin 81 mg PO QAM 11/12/13 09/04/22 History Metoprolol Tartrate [Lopressor] 25 mg PO QAM 11/12/13 09/04/22 History Nitroglycerin Sl Tabs [Nitrostat] 0.4 mg SUBLINGUAL DIRECTED PRN 11/12/13 09/04/22 History amLODIPine [Norvasc] 5 mg PO QAM 08/19/15 09/04/22 History Simvastatin [Zocor] 20 mg PO DAILY 08/30/22 09/04/22 History Allergies Allergy/AdvReac Type Severity Reaction Status Date / Time levofloxacin [From Levaquin] Allergy Itching/JOE Verified 09/04/22 12:38 H Surgical - Exam Vital Signs Temp Pulse Resp BP Pulse Ox 97.5 F L 85 17 170/90 97 09/04/22 12:47 09/04/22 12:47 09/04/22 12:47 09/04/22 12:47 09/04/22 12:47 - General well developed, well nourished, no distress - Eyes PERRL - ENT normal pinna - Neck no masses - Respiratory normal expansion - Cardiovascular Rhythm: regular - Abdomen Abdomen: soft, non tender Assessment and Plan Assessment: we'll perform screening colonoscopy
--- NOTE | 2022-09-04 14:29 | P.OP ---
Date of Procedure: 09/04/22 Preoperative Diagnosis: screening colonoscopy Postoperative Diagnosis: incomplete colonoscopy Procedure(s) Performed: colonoscopy Anesthesia: MAC Surgeon: Fernando Sosa Pathology: none sent Condition: stable Disposition: PACU Description of Procedure: the patient's placed on the endoscopy table in the lateral position. She received IV sedation. Digital rectal exam performed. This revealed no ebonized. The flexible colonoscope was then placed patient anus and passed throughout the colon. Scope was passed beyond the left colon secondary to significant tortuosity of the sigmoid colon. There was some diverticular changes noted. Scscope was then brought back. The rectum appeared normal. Scope withdrawn for patient. Patient scheduled for a barium enema
[2022-09-04 14:52] VITALS: BP 132/73; PULSE 69; RESP 18
--- NOTE | 2022-09-05 18:37 | FL ---
EXAMINATION TYPE: FL barium enema DATE OF EXAM: 09/05/2022 COMPARISON: None HISTORY: Incomplete colonoscopy TECHNIQUE: Double air contrast technique was performed. FINDINGS: Fluoroscopy time: 2 minutes 33 seconds. Images: 18 Contrast followed by air was refluxed through the colon. Redundancy proved difficult to reflux beyond the hepatic flexure despite multiple attempts. Air-filled colon is identified at this distal level. Contrast could not be refluxed. The patient was informed possible incomplete to the cecum. Post evacu ation suggests possible visualization of the ileocecal valve and the cecum. Length however appears so mewhat less then additional noncontrast air-filled ascending colon. Small diverticulum is within the sigmoid colon. Presacral space appears normal. No persistent area of circumferential narrowing is identified. No filling defects are identified. IMPRESSION: 1. No suspicious area for neoplasm within the well-visualized portions of the colon.. 2. Small diverticulum within the sigmoid colon. 3. Exam is limited within the ascending colon region. This may be incompletely to the cecum.
== END 2022-09-04 15:33 | disposition home or self-care (01) ==
LOC: ORWHC2ENDO 12:15
PROVIDERS: ATTEND Surgery
DX: Z12.11 Encounter for screening for malignant neoplasm of colon (principal); K57.30 Diverticulosis of large intestine without perforation or abscess without bleeding; K63.89 Other specified diseases of intestine; K21.9 Gastro-esophageal reflux disease without esophagitis; K44.9 Diaphragmatic hernia without obstruction or gangrene; I49.9 Cardiac arrhythmia, unspecified; I10 Essential (primary) hypertension; Z90.49 Acquired absence of other specified parts of digestive tract; Z79.82 Long term (current) use of aspirin; Z88.1 Allergy status to other antibiotic agents; Z79.899 Other long term (current) drug therapy
CPT/HCPCS: 45378; J2704; 45330; 74270